=== PATIENT | male | born 1995 | race African-American/Black ===

== ENCOUNTER 2020-04-11 21:06 | Emergency (ER) | payer OTHER, BC ==
[~2020-04-11] VITALS: Ht 180.3 cm; Wt 113.6 kg
[~2020-04-11 21:06] MED LIST: ALBU2.5V8 INH; PRED20TA PO
--- NOTE | 2020-04-11 21:49 | PHYS DOC ---
Past Medical History Past Medical History: Asthma Past Surgical History: No Surgical History Smoking Status: Never Smoker Alcohol Use: Occasionally Drug Use: None General Adult EDM: Chief Complaint: CHEST WALL PAIN HPI: HPI: Patient is a 24 year old male who presents with complaint of chest pain that started earlier today that he describes as a tightness. He also indicates that he has some tingling in his chest as well as tingling in both of his hands. He states that the tingling has been present for about a month now. He denies any lateralizing weakness or speech deficits. Patient rates the discomfort in his chest is moderate. He states that nothing seems to worsen or improve it. [] Review of Systems: Review of Systems: Constitutional: Denies fever or chills. [] Respiratory: Denies cough or shortness of breath. [] Cardiovascular: Denies chest pain or edema. [] GI: Denies abdominal pain, nausea, vomiting, bloody stools or diarrhea. [] Neurologic: Denies headache or focal weakness. Complains of paresthesia to both hands. [] A full 10 point review of systems has been reviewed and is otherwise negative. Heart Score: HEART Score for Chest Pain: HEART Score for Chest Pain Response (Comments) Value History Slighlty/Non-Suspicious 0 ECG Normal 0 Age < 45 0 Risk Factors No Risk Factors 0 Troponin < Normal Limit 0 Total 0 Risk Factors: Risk Factors: DM, Current or recent (<one month) smoker, HTN, HLP, family history of CAD, obesity. Risk Scores: Score 0 - 3: 2.5% MACE over next 6 weeks - Discharge Home Score 4 - 6: 20.3% MACE over next 6 weeks - Admit for Clinical Observation Score 7 - 10: 72.7% MACE over next 6 weeks - Early Invasive Strategies Allergies: Allergies: Allergies Coded Allergies Type Severity Reaction Last Updated Verified No Known Drug Allergies 06/04/16 No Physical Exam: PE: Constitutional: Well developed, well nourished, no acute distress, non-toxic appearance. [] HENT: Normocephalic, atraumatic, bilateral external ears normal, oropharynx moist, no oral exudates, nose normal. [] Eyes: PERRLA, EOMI, conjunctiva normal, no discharge. [] Neck: Normal range of motion, no tenderness, supple, no stridor. [] Cardiovascular: Regular rate and rhythm [] Lungs & Thorax: Bilateral breath sounds clear to auscultation [] Abdomen: Bowel sounds normal, soft, no tenderness. [] Skin: Warm, dry, no erythema, no rash. [] Extremities: No tenderness, no cyanosis, no clubbing, ROM intact, no edema. [] Neurologic: Alert and oriented X 3, no focal deficits noted. [] Current Patient Data: Vital Signs: Vital Signs Date Time Temp Pulse Resp B/P (MAP) Pulse Ox O2 Delivery O2 Flow Rate FiO2 04/11/20 21:23 98.2 69 14 162/66 (98) 95 Room Air 98.2 EKG: EKG: EKG demonstrates normal sinus rhythm with rate of 62. [] Radiology/Procedures: Radiology/Procedures: [] Impression: PROCEDURE: PORTABLE CHEST 1V EXAM: Chest, single view. HISTORY: Chest pain. COMPARISON: 06/04/2016 FINDINGS: A frontal view of the chest is obtained. There is no infiltrate, pleural effusion or pneumothorax. The heart is normal in size. IMPRESSION: No acute pulmonary finding. Electronically signed by: Ayleen Hinson MD (04/11/2020 10:30 PM) [facility] Course & Med Decision Making: Course & Med Decision Making Pertinent Labs and Imaging studies reviewed. (See chart for details) [] Dragon Disclaimer: Dragon Disclaimer: This electronic medical record was generated, in whole or in part, using a voice recognition dictation system. Departure Departure Impression: Primary Impression: Chest pain Qualified Codes: R07.9 - Chest pain, unspecified Additional Impression: Paresthesia Disposition: 01 HOME, SELF-CARE Condition: STABLE Referrals: SALONI MCARTHUR MD (PCP) Patient Instructions: Chest Pain (Nonspecific), Paresthesia VICKI DEL CID Jr. DO April 11, 2020 21:49
[2020-04-11] MEDS ORDERED: IV NORMAL SALINE 1000ML BAG 1,000 ML IV SCH (22:00)
[2020-04-11 22:14] LABS: BASO % 1 % (0-3); EOS # 0.2 x10^3/uL (0.0-0.7); EOS % 3 % (0-3); HEMATOCRIT 44.1 % (39.0-53.0); HEMOGLOBIN 15.1 g/dL (13.0-17.5); LYMPH # 2.5 x10^3/uL (1.0-4.8); LYMPH % 40 % (24-48); MEAN CORPUSCULAR HEMOGLOBIN 30 pg (25-35); MEAN CORPUSCULAR HGB CONC 34 g/dL (31-37); MEAN CORPUSCULAR VOLUME 89 fL (79-100); MONO # 0.5 x10^3/uL (0.0-1.1); MONO % 8 % (0-9); NEUT # 3.1 x10^3/uL (1.8-7.7); NEUT % 49 % (31-73); PLATELET COUNT 244 x10^3/uL (140-400); RED BLOOD COUNT 4.95 x10^6/uL (4.30-5.70); RED CELL DISTRIBUTION WIDTH 13.1 % (11.5-14.5); WHITE BLOOD COUNT 6.3 x10^3/uL (4.0-11.0)
[2020-04-11 22:19] LABS: CREATININE 1.3 mg/dL (0.7-1.3); GFR 82.8; POTASSIUM 3.6 mmol/L (3.5-5.1)
[2020-04-11 22:24] LABS: ALBUMIN 3.6 g/dL (3.4-5.0); ALBUMIN/GLOBULIN RATIO 1.2 (1.0-1.7); MAGNESIUM 1.8 mg/dL (1.8-2.4); TOTAL BILIRUBIN 0.7 mg/dL (0.2-1.0); TOTAL PROTEIN 6.6 g/dL (6.4-8.2)
[2020-04-11] MEDS ORDERED: diphenhydrAMINE 50 MG/ML VIAL IVP ONE (22:30)
--- NOTE | 2020-04-11 22:33 | RAD ---
EXAM: Chest, single view. HISTORY: Chest pain. COMPARISON: 06/04/2016 FINDINGS: A frontal view of the chest is obtained. There is no infiltrate, pleural effusion or pneumothorax. The heart is normal in size. IMPRESSION: No acute pulmonary finding. Electronically signed by: Ayleen Hinson MD (04/11/2020 10:30 PM) [facility]
[2020-04-11 23:49] VITALS: BP 122/57
--- NOTE | 2020-04-12 15:32 | EKG ---
[facility] [address] [place] [address] Test Date: 2020-04-11 Test Time: 21:24:59 Pat Name: LENA JEFFRIES Department: Room: Gender: M [employer] Supervisor: : 1995 Requested By: VICKI DEL CID Order Number: [id number] Reading MD: Measurements Intervals [place] Rate: 62 P: 50 NV: 184 QRS: 48 QRSD: 86 T: 22 QT: 390 QTc: 398 Interpretive Statements SINUS RHYTHM NORMAL ECG RI6.01 No previous ECG available for comparison
== END 2020-04-12 00:17 | disposition home or self-care (01) ==
LOC: ER 21:06
DX: R07.89 Other chest pain (principal); R20.2 Paresthesia of skin; J45.909 Unspecified asthma, uncomplicated
CPT/HCPCS: 36415; 71045; 80053; 82607; 82746; 83735; 83880; 84484; 85025; 85379; 93005; 96374; 99285; J1200; J7030; 96361

== ENCOUNTER 2020-06-11 17:13 | Emergency (ER) | payer OTHER, BC ==
[~2020-06-11] VITALS: Ht 180.3 cm; Wt 113.6 kg
[2020-06-11] MEDS ORDERED: IV NORMAL SALINE 1000ML BAG 1,000 ML IV SCH (17:30)
[2020-06-11] MEDS ORDERED: fentaNYL PF VIAL 100 MCG/2 ML VIAL ONE (17:35)
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
[2020-06-11 18:02] LABS: BASO % 1 % (0-3); EOS # 0.1 x10^3/uL (0.0-0.7); EOS % 1 % (0-3); HEMOGLOBIN 16.2 g/dL (13.0-17.5); LYMPH # 2.5 x10^3/uL (1.0-4.8); LYMPH % 31 % (24-48); MEAN CORPUSCULAR HEMOGLOBIN 31 pg (25-35); MEAN CORPUSCULAR HGB CONC 35 g/dL (31-37); MEAN CORPUSCULAR VOLUME 89 fL (79-100); MONO # 0.7 x10^3/uL (0.0-1.1); MONO % 8 % (0-9); NEUT # 4.9 x10^3/uL (1.8-7.7); NEUT % 60 % (31-73); PLATELET COUNT 258 x10^3/uL (140-400); RED BLOOD COUNT 5.27 x10^6/uL (4.30-5.70); RED CELL DISTRIBUTION WIDTH 13.2 % (11.5-14.5); WHITE BLOOD COUNT 8.2 x10^3/uL (4.0-11.0)
[2020-06-11] MEDS: fentaNYL PF VIAL 100 MCG/2 ML VIAL IV PRN ×3 (18:05→18:50)
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
[2020-06-11 18:11] LABS: PROTHROMBIN TIME PATIENT 14.3 SEC (11.7-14.0)
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
[2020-06-11 18:16] LABS: CALCIUM 9.6 mg/dL (8.5-10.1); CREATININE 1.7 mg/dL (0.7-1.3); GFR 60.7; POTASSIUM 3.7 mmol/L (3.5-5.1)
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
[2020-06-11 19:52] LABS: BILIRUBIN,URINE NEGATIVE (NEG); CLARITY,URINE CLEAR; COLOR,URINE YELLOW; NITRITE,URINE NEGATIVE (NEG); PH,URINE 5.5 (<5.0-8.0); PROTEIN,URINE 30 mg/dL (NEG-TRACE)
[2020-06-11 19:55] LABS: BACTERIA,URINE 0 /HPF (0-FEW); BARBITURATES NEG (NEG); BENZODIAZEPINES NEG (NEG); CANNABINOIDS POS (NEG); COCAINE NEG (NEG); HYALINE CASTS, URINE FEW /HPF; METHADONE NEG (NEG); OPIATES NEG (NEG); PHENCYCLIDINE NEG (NEG); RBC,URINE 0 /HPF (0-2); WBC,URINE 0 /HPF (0-4)
[2020-06-11 19:56] LABS: AMPHETAMINE/METHAMPHETAMINE NEG (NEG)
--- NOTE | 2020-06-11 20:22 | RAD ---
2 views bilateral femurs 3 views left knee 3 views left ankle and 3 views left foot Bilateral femurs: AP lateral views The visualized osseous structures appear normal. IMPRESSION: No acute findings End impression 3 views left ankle: AP lateral oblique views The visualized osseous structures appear normal. The tibiotalar relationship is normal. IMPRESSION: No acute findings. 3 views left knee: AP lateral oblique views. The visualized osseous structures appear normal. IMPRESSION: No acute findings. 3 views left foot: AP lateral oblique views The visualized osseous structures appear normal. IMPRESSION: No acute findings. End impression Electronically signed by: Troy Mendez III, MD (06/11/2020 8:19 PM) [facility]
[2020-06-11] MEDS ORDERED: TETANUS AND DIPHTHERIA TOX/PF 0.5 ML DISP.SYRIN. VAX IM ONE (20:30)
[2020-06-11] MEDS ORDERED: HYDROcodone/APAP 5/325MG 1 TAB TABLET PO ONE (20:43)
[2020-06-11] MEDS ORDERED: HYDR-2761 PO (20:58)
[2020-06-11 21:14] VITALS: BP 145/70
[2020-06-11] MEDS ORDERED: IOHEXOL 300 MG/ML 100ML VIAL. ONE (21:39)
--- NOTE | 2020-06-16 04:17 | EKG ---
[facility] [address] [place] [address] Test Date: 2020-06-11 Test Time: 18:06:57 Pat Name: LENA JEFFRIES Department: Room: Gender: M [employer]: : 1995 Requested By: LESIA ZHENG Order Number: [id number] Reading MD: Measurements Intervals [place] Rate: 77 P: 62 AL: 186 QRS: 59 QRSD: 84 T: 33 QT: 348 QTc: 395 Interpretive Statements SINUS RHYTHM NO SPECIFIC ECG ABNORMALITIES RI6.02 No previous ECG available for comparison
== END 2020-06-11 21:19 | disposition home or self-care (01) ==
LOC: ER 17:13
DX: R07.89 Other chest pain (principal); G89.11 Acute pain due to trauma; M79.651 Pain in right thigh; M79.652 Pain in left thigh; M25.572 Pain in left ankle and joints of left foot; R51 Headache; M54.2 Cervicalgia; J45.909 Unspecified asthma, uncomplicated; V29.88XA Motorcycle rider (driver) (passenger) injured in other specified transport accidents, initial encounter; Y92.488 Other paved roadways as the place of occurrence of the external cause; Y93.89 Activity, other specified; Y99.8 Other external cause status
CPT/HCPCS: 36415; 70450; 71045; 71260; 72125; 73552; 73562; 73610; 73630; 74177; 80048; 80307; 81001; 84484; 85025; 85610; 85730; 86850; 86900; 86901; 90471; 90714; 96374; 99285; G0480; J3010; J7030

== ENCOUNTER → 2020-07-21 | Outpatient (CLI) | payer OTHER, BC ==
[~2020-07-21] MED LIST changes: +HYDR-2761 PO
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
== END | disposition home or self-care (01) ==
LOC: KCIC MRI 14:27
PROVIDERS: ATTEND Orthopaedic Surgery Sports Medicine
DX: S80.02XA Contusion of left knee, initial encounter (principal); X58.XXXA Exposure to other specified factors, initial encounter; Y93.89 Activity, other specified; Y92.89 Other specified places as the place of occurrence of the external cause; Y99.8 Other external cause status
CPT/HCPCS: 73721